=== PATIENT | male | born 1970 | race Caucasian/White ===

== ENCOUNTER → 2022-08-16 | Outpatient (CLI) | payer BC, OTHER ==
[~2022-08-16] MED LIST: PROHANCE 279.3MG/ML 15ML VIAL ONE; PROHANCE 279.3MG/ML 5ML VIAL ONE
== END ==
LOC: M PLAIMG 10:32
PROVIDERS: ATTEND Specialist
DX: N40.2 Nodular prostate without lower urinary tract symptoms (principal)

== ENCOUNTER → 2023-05-05 | Outpatient (CLI) | payer BC, OTHER | LOC: M PLAIMG 07:55 | PROVIDERS: ATTEND Physician Assistant | DX: N40.2 Nodular prostate without lower urinary tract symptoms (principal) | CPT/HCPCS: 72197; A9576 ==

== ENCOUNTER → 2023-09-21 | Outpatient (CLI) | payer BC ==
[~2023-09-21] MED LIST changes: +CITA20TA6; +KETO2CR; +MOME50SP2; +MONT10TA97; +OMEP40CA5; -PROHANCE 279.3MG/ML 15ML VIAL ONE; -PROHANCE 279.3MG/ML 5ML VIAL ONE; +QUET100T2; +VILO200C
== END ==
LOC: M SLEEP HO 11:48
PROVIDERS: ATTEND Nurse Practitioner Adult Health
DX: G47.30 Sleep apnea, unspecified (principal)

== ENCOUNTER 2023-10-18 10:55 | Day surgery (SDC) | payer BC ==
[2023-10-18] VITALS (7 sets, daily range): BP systolic 120–133; BP diastolic 84–93; TEMP 97.5–98.2; O2SAT 94–99
[~2023-10-18] VITALS: Ht 170.2 cm; Wt 87.2 kg
[~2023-10-18 10:55] MED LIST changes: +ACETAMINOPHEN 1000MG 100ML IV BAG As Ordered ONE; -CITA20TA6; +CITA20TA6 PO; +LIDOCAINE 2% 100MG/5ML SDV (FOR ANES.) As Ordered ONE; +MIDAZOLAM INJ 2MG/2ML VIAL As Ordered ONE; -MOME50SP2; +MOME50SP2 NARES; -MONT10TA97; +MONT10TA97 PO; -OMEP40CA5; +OMEP40CA5 PO; +ONDANSETRON 4MG 2ML VIAL As Ordered ONE; -QUET100T2; +QUET100T2 PO; +ROCURONIUM BROMIDE 50MG/5ML VIAL As Ordered ONE; -VILO200C; +VILO200C PO; +fentaNYL 100 MCG/2 ML INJECTION As Ordered ONE; +propofoL 200 MG/20 ML VIAL As Ordered ONE
[2023-10-18] MEDS ORDERED: MELO15TA28 PO (11:35)
[2023-10-18] MEDS ORDERED: KETO2CR TOP (11:35)
[2023-10-18] MEDS: LR 1,000 ML IV SCH (11:39)
[2023-10-18] MEDS ORDERED: HOME MED LIST COMPLETE! XX SCH (11:40)
[2023-10-18] MEDS: ceFAZolin SOD 2 GM in IV 1 EA IV ONE (12:11)
[2023-10-18] MEDS ORDERED: ONDANSETRON 4MG 2ML VIAL IV PRN (12:20)
[2023-10-18] MEDS ORDERED: ACETAMINOPHEN TAB 650MG DOSE (2X325MG) PO PRN (12:20)
[2023-10-18] MEDS: HEPARIN SOD (PORCINE) 5000UNITS/ML 1ML VIAL/SYRINGE SQ ONE (12:25)
[2023-10-18] MEDS ORDERED: HYDROmorphone HCL 2MG/ML 1ML VIAL As Ordered ONE (12:39)
[2023-10-18] MEDS ORDERED: SUGAMMADEX SODIUM 500 MG/5 ML VIAL (BRIDION) As Ordered ONE (15:33)
[2023-10-18] MEDS ORDERED: DESFLURANE 240 ML INHALANT As Ordered ONE (15:36)
[2023-10-18] MEDS ORDERED: SEVOFLURANE INHAL SOLN 250 ML BTL As Ordered ONE (15:40)
[2023-10-18] MEDS: LIDOCAINE 1% SDV 30ML VIAL As Ordered ONE (16:09)
[2023-10-18] MEDS ORDERED: MORPHINE 2 MG/ML 1ML VIAL IV PRN (16:15)
[2023-10-18 16:52] LABS: HEMATOCRIT 42.6 % (42.0-52.0); HEMOGLOBIN 15.4 g/dl (13.5-17.5); MEAN CORPUSCULAR HEMOGLOBIN 33.8 pg (27.0-33.0); MEAN CORPUSCULAR HGB CONC 36.2 g/dl (32.0-36.5); MEAN CORPUSCULAR VOLUME 93.4 fl (80.0-96.0); PLATELET COUNT, AUTOMATED 251 10^3/uL (150-450); RED BLOOD COUNT 4.56 10^6/uL (4.30-6.10); WHITE BLOOD COUNT 11.3 10^3/uL (4.0-10.0)
[2023-10-18] MEDS: fentaNYL 100 MCG/2 ML INJECTION IV PRN (16:57)
[2023-10-18] MEDS: oxyCODONE 5MG TAB PO PRN (17:09)
[2023-10-18 17:20] LABS: BLOOD UREA NITROGEN 14 MG/DL (9-23); CALCIUM LEVEL 8.7 MG/DL (8.5-10.1); CARBON DIOXIDE LEVEL 23 MMOL/L (20-31); CHLORIDE LEVEL 107 MMOL/L (98-107); CREATININE FOR GFR 0.88 MG/DL (0.70-1.30); GLOMERULAR FILTRATION RATE > 60.0 (>56); GLUCOSE, FASTING 150 MG/DL (60-100); POTASSIUM SERUM 4.2 MMOL/L (3.5-5.1); SODIUM LEVEL 138 MMOL/L (136-145)
[2023-10-18] MEDS: ONDANSETRON 4MG 2ML VIAL IV PRN (17:26)
[2023-10-18] MEDS: NS 1,000 ML IV SCH (17:46)
[2023-10-18] MEDS: DOCUSATE SODIUM 100MG CAPSULE PO SCH (19:48)
[2023-10-18] MEDS: ceFAZolin SOD 1 GM in D5W MINI-BAG PLUS 50 ML IV SCH (19:48)
[2023-10-18] MEDS: HEPARIN SOD (PORCINE) 5000UNITS/ML 1ML VIAL/SYRINGE SC SCH (21:11)
[2023-10-18] MEDS: PERCOCET 5MG/325MG TAB PO PRN (22:38)
[2023-10-19 02:45] VITALS: BP 132/92; TEMP 98.8; O2SAT 97
[2023-10-19] MEDS: PERCOCET 5MG/325MG TAB PO PRN (04:49)
[2023-10-19 06:39] VITALS: BP 102/70; TEMP 98.2; O2SAT 95
[2023-10-19 07:51] LABS: HEMATOCRIT 39.1 % (42.0-52.0); HEMOGLOBIN 14.2 g/dl (13.5-17.5); MEAN CORPUSCULAR HEMOGLOBIN 34.1 pg (27.0-33.0); MEAN CORPUSCULAR HGB CONC 36.3 g/dl (32.0-36.5); MEAN CORPUSCULAR VOLUME 93.8 fl (80.0-96.0); PLATELET COUNT, AUTOMATED 258 10^3/uL (150-450); RED BLOOD COUNT 4.17 10^6/uL (4.30-6.10); WHITE BLOOD COUNT 10.9 10^3/uL (4.0-10.0)
[2023-10-19 08:20] LABS: BLOOD UREA NITROGEN 11 MG/DL (9-23); CALCIUM LEVEL 8.5 MG/DL (8.5-10.1); CARBON DIOXIDE LEVEL 27 MMOL/L (20-31); CHLORIDE LEVEL 106 MMOL/L (98-107); CREATININE FOR GFR 0.82 MG/DL (0.70-1.30); GLOMERULAR FILTRATION RATE > 60.0 (>56); GLUCOSE, FASTING 95 MG/DL (60-100); SODIUM LEVEL 141 MMOL/L (136-145)
[2023-10-19] MEDS: QUEtiapine FUMARATE 200 MG TAB PO SCH (09:00)
[2023-10-19] MEDS: OMEPRAZOLE 20MG CAP PO SCH (09:09)
[2023-10-19] MEDS: MONTELUKAST 10 MG TAB PO SCH (09:10)
[2023-10-19] MEDS: CitaloPRAM (CeleXA) 20 MG TAB PO SCH (09:10)
[2023-10-19 10:00] VITALS: BP 130/94; TEMP 98.2; O2SAT 94
[2023-10-19 14:00] VITALS: BP 131/93; TEMP 98.2; O2SAT 95
[2023-10-19] MEDS ORDERED: BACT800T5 PO (15:15)
[2023-10-19] MEDS ORDERED: PERCOCET PO (15:15)
[2023-10-19] MEDS ORDERED: COLA100C5 PO (15:15)
== END 2023-10-19 16:46 | disposition home or self-care (01) ==
LOC: M OR 10:55 → UNDOADMIN 10:55 → M SDC 10:55 → EDSTATUS 12:30 → M OR 17:34 → M MSPAV 17:34 → M SDC 10-19 16:46 → UNDODISIN 10-19 16:46
PROVIDERS: ATTEND Urology
DX: C61 Malignant neoplasm of prostate (principal); R00.0 Tachycardia, unspecified; G47.30 Sleep apnea, unspecified; K21.9 Gastro-esophageal reflux disease without esophagitis; F41.9 Anxiety disorder, unspecified; M54.9 Dorsalgia, unspecified; Z79.899 Other long term (current) drug therapy; K90.41 Non-celiac gluten sensitivity
CPT/HCPCS: 36415; 55866; 80048; 85027; 86850; 86900; 86901; 88309; 96361; 96365; 96372; 96376; J0131; J0665; J0690; J1100; J1170; J2250; J2405; J3010; S2900

== ENCOUNTER → 2023-11-30 | Outpatient (CLI) | payer BC ==
[~2023-11-30] MED LIST changes: -ACETAMINOPHEN 1000MG 100ML IV BAG As Ordered ONE; +BACT800T5 PO; +COLA100C5 PO; +KETO2CR TOP; -LIDOCAINE 2% 100MG/5ML SDV (FOR ANES.) As Ordered ONE; +MELO15TA28 PO; -MIDAZOLAM INJ 2MG/2ML VIAL As Ordered ONE; -ONDANSETRON 4MG 2ML VIAL As Ordered ONE; +PERCOCET PO; -ROCURONIUM BROMIDE 50MG/5ML VIAL As Ordered ONE; -fentaNYL 100 MCG/2 ML INJECTION As Ordered ONE; -propofoL 200 MG/20 ML VIAL As Ordered ONE
== END ==
LOC: M PLALAB 12:32
PROVIDERS: ATTEND Urology
DX: C61 Malignant neoplasm of prostate (principal)

== ENCOUNTER → 2024-03-12 | Outpatient (CLI) | payer BC | LOC: M PLALAB 12:02 | PROVIDERS: ATTEND Urology | DX: C61 Malignant neoplasm of prostate (principal) ==

== ENCOUNTER → 2024-06-07 | Outpatient (CLI) | payer BC | LOC: M PLALAB 11:44 | PROVIDERS: ATTEND Urology | DX: C61 Malignant neoplasm of prostate (principal) ==

== ENCOUNTER → 2024-09-27 | Outpatient (CLI) | payer BC | LOC: M PLALAB 08:54 | PROVIDERS: ATTEND Urology | DX: C61 Malignant neoplasm of prostate (principal) ==